=== PATIENT | male | born 1960 | race Asian ===

== ENCOUNTER 2018-03-05 06:02 | Day surgery (SDC) | payer OTHER ==
[~2018-03-05] VITALS: Ht 182.9 cm; Wt 79.8 kg
[2018-03-05 06:38] VITALS: BP 121/67
[2018-03-05 11:10] VITALS: BP 129/82
== END 2018-03-05 09:55 | disposition home or self-care (01) ==
LOC: GI 06:02 → OR 07:30 → GI 07:30
PROVIDERS: Internal Medicine Gastroenterology
PROC: 0DBL8ZZ Excision of Transverse Colon, Via Natural or Artificial Opening Endoscopic (ICD-10-PCS; principal; 2018-03-05 07:30)
DX: Z12.11 Encounter for screening for malignant neoplasm of colon (principal); D12.3 Benign neoplasm of transverse colon; Z86.010 Personal history of colon polyps
CPT/HCPCS: 45378; J1200; J1610; J2250; J2310; J3010; J3490